=== PATIENT | female | born 1960 | race American Indian/Alaskan Native ===

== ENCOUNTER 2018-11-03 13:30 | Emergency (ER) | payer BC ==
[2018-11-03 13:40] VITALS: BP 158/90
--- NOTE | 2018-11-03 13:44 | Emergency Department Report ---
Blank Doc - Documentation Documentation: This is a 58-year-old female that presents with left elbow and shoulder pain s/p fall. Stated she slipped and fell. Denies any head injuries or back pain. This initial assessment diagnostic orders/clinical plan/treatment(s) is/are subject to change based on patient's health status, clinical progression and re- assessment by fellow clinical providers in the ED. Further treatment and workup at subsequent clinical providers discretion. Patient/guardians urged not to elope from ED s their condition may be serious if not clinically assessed and managed. Initial orders include: 1-Patient sent to [facility] for further evaluation and treatment 2- xray
--- NOTE | 2018-11-03 15:37 | XRay Report ---
LEFT ELBOW, 3 views: History: left elbow pain. A large anterior and posterior joint effusion is identified. The bony structures are grossly intact on x-ray. No displaced fracture is detected. No significant joint pathology. IMPRESSION: Large joint effusion but no obvious bony injury. This could indicate an occult fracture or osteochondral defect. Please correlate with the patient and consider further imaging with MRI or CT.
--- NOTE | 2018-11-03 15:39 | XRay Report ---
LEFT SHOULDER, 3 views: History: Left shoulder pain. Mild osteoarthritic changes are identified at the a.c. joint and glenohumeral joint. The distal left clavicle is slightly elevated with respect to the acromion which could represent ligamentous injury. There is no evidence for displaced fracture or malalignment. The soft tissues are unremarkable. IMPRESSION: Osteoarthritis. Question the a.c. ligament injury. No evidence for fracture.
[2018-11-03] MEDS ORDERED: DECADRON IM STA (18:24)
[2018-11-03] MEDS ORDERED: IBUPROFEN PO ONE (18:24)
--- NOTE | 2018-11-03 18:24 | Emergency Department Report ---
Upper Extremity - HPI Chief Complaint: Extremity Problem,Nontraumatic Stated Complaint: LT ARM PAIN Time Seen by Provider: 11/03/18 13:42 Upper Extremity: Left Shoulder (pain after injury), Left Arm (pain after injury), Left Elbow (pain and swelling after injury) Occurred When: Today (a current) Mechanism: Fall, Other ( patient reports that she hit her shoulder and left arm on a metal pole while at work) Symptoms: Yes Pain with Movement (left shoulder left arm and left elbow), Yes Limited Range of Movement (left upper extremity), Yes Weakness (left upper extremity), Yes Swelling (left elbow), No Deformity, No Numbness, No Bruising/Ecchymosis, No Laceration or Abrasion Other History: This is a 58-year-old female who is here for left arm pain after injuring herself at work. She says she hit her shoulder, left arm and elbow on a metal pole today. She reports pain 8 out of 10 and radiating from her shoulder down to her forearm. She denies any head injury. Denies any chest pain or shortness of breath. This happened 30 minutes prior to coming to the emergency room. Patient and has a history of arthritis to left knee but denies any other problems. No medication taken prior to coming to the emergency room. Pain is worse with movement and to touch but no arrests. ED Review of Systems ROS: Stated complaint: LT ARM PAIN Other details as noted in HPI Constitutional: denies: chills, fever ENT: denies: throat pain, congestion Respiratory: denies: cough, shortness of breath, wheezing Cardiovascular: denies: chest pain, palpitations, edema, syncope (I note this To smoke about 1 on a bar I just dislocated such as long growth A) Gastrointestinal: denies: abdominal pain, nausea, vomiting Musculoskeletal: joint swelling, arthralgia. denies: back pain, myalgia Skin: denies: rash (Biglow Grundman sister brought she) Neurological: weakness, paresthesias. denies: headache, numbness, confusion, abnormal gait, vertigo (Y deformity to his sister for) ED Past Medical Hx - Past Medical History Previous Medical History?: Yes (Y deformity to his sister for therapeutic here) - Surgical History Past Surgical History?: Yes Additional Surgical History: left knee surgery - Family History Family history: hypertension - Social History Smoking Status: Never Smoker Substance Use Type: None - Medications Home Medications: Home Medications Medication Instructions Recorded Confirmed Last Taken Type Acetaminophen/Codeine [Tylenol 1 tab PO Q6H PRN #14 tab 11/03/18 Unknown Rx /Codeine # 3 tab] Ibuprofen [Motrin] 800 mg PO Q8HR PRN #12 tablet 11/03/18 Unknown Rx Upper Extremity Exam - Exam General: Vital signs noted. No distress. Alert and acting appropriately. This is a 58-year-old female well-nourished well-developed in no acute distress. Head and Torso: No HEENT Abnormality, No Neck Tenderness, No Chest/Lungs Abnormality, No Abdominal Tenderness, No Back Tenderness Shoulder Exam: Yes Shoulder Tenderness (GHJ), Yes Normal Range of Motion in Shoulder (limited range of motion to left shoulder due to pain), Yes AC Joint Tenderness (tender to palpate.), No Clavicle Tenderness, No Shoulder Deformity Arm Exam: Yes Arm/Humerus Tenderness (tentative palpate with mild swelling to arm), No Arm Deformity Elbow: Yes Elbow Tenderness, Yes Elbow Deformity (swelling to left elbow), No Normal Range of Motion in Elbow (Limited range of motion to the left elbow) Forearm: Yes Pain with Pronation (left), Yes Pain with Supination (left), No Forearm Tenderness, No Forearm Deformity Wrist: Yes Normal ROM in Wrist, No Wrist Tenderness, No Wrist Deformity, No Snuffbox Tenderness, No Pain with Axial Thumb Compression Hand: Yes Normal ROM in Digit(s), No Hand Tenderness, No Hand Deformity, No Digit Tenderness, No Digit(s) Deformity, No Tendon Dysfunction CMS Exam: Yes Normal Distal Pulses (No cce. + 2 pulses in all extremities, no neurovascular compromise except patient has limited range of motion to shoulder joint on the left, swelling to arm and posterior shoulder and elbow swelling with pain and limited range of motion on the left.), Yes Normal Capillary Refill (less than 2 seconds), Yes Normal Distal Sensation ( patient with good color sensation movement and temperature extremities.), No Broken Skin ED Course Vital Signs 11/03/18 13:38 Temperature 97.5 F L Pulse Rate 72 Respiratory 16 Rate Blood Pressure 158/90 O2 Sat by Pulse 100 Oximetry - Reevaluation(s) Reevaluation #1: 11/03/18 19:09 Patient given Decadron 10 mg IM, Auberry 5/325 2 tablets and Motrin 800 mg when necessary emergency room. She was found to have abnormal x-ray of shoulder and elbow and I spoke with Dr. Alcala was orthopedic doctor electrician second and gave him reports on x-rays and he wants patient to be placed in shoulder immobilizer and follow up with him in his office in 1-2 days. Patient pain is better. Please see procedure note for details of splinted - Orthopedic Splinting/Casting Injury #1 Side: left Upper Extremity Injury Location: shoulder, upper arm, elbow Upper Extremity Immobilizer: sling/shoulder immobilize Additional Comments: Patient with good color, sensation temperature and movement to left upper extremity and 2+ and bounding pulses. No restriction in movement finger hands or wrists. ED Medical Decision Making - Radiology Data Radiology results: report reviewed X-ray of left shoulder and left shoulder dictated by radiologist and reports reviewed by myself. Please see details below all quite uvula Findings [address] [address] XRay Report Signed Patient: JESSICA KELLY MR#: [id number] : 1960 Acct:[id number] Age/Sex: 58 / F ADM Date: 11/03/18 Loc: ED Attending Dr: Ordering Physician: SMITA BELLO NP Date of Service: 11/03/18 Procedure(s): XR shoulder 2+V LT Accession Number(s): [id number] cc: SMITA BELLO NP Fluoro Time In Minutes: LEFT SHOULDER, 3 views: History: Left shoulder pain. Mild osteoarthritic changes are identified at the a.c. joint and glenohumeral joint. The distal left clavicle is slightly elevated with respect to the acromion which could represent ligamentous injury. There is no evidence for displaced fracture or malalignment. The soft tissues are unremarkable. IMPRESSION: Osteoarthritis. Question the a.c. ligament injury. No evidence for fracture. Transcribed By: TTR Dictated By: ARMANDO STERN JR, MD Electronically Authenticated By: ARMANDO STERN JR, MD Signed Date/Time: 11/03/18 1535 DD/ 1534 TD/TT: 11/03/18 [address] [address] XRay Report Signed Patient: JESSICA KELLY MR#: [id number] : 1960 Acct:[id number] Age/Sex: 58 / F ADM Date: 11/03/18 Loc: ED Attending Dr: Ordering Physician: SMITA BELLO NP Date of Service: 11/03/18 Procedure(s): XR elbow 3+V LT Accession Number(s): [id number] cc: SMITA BELLO NP Fluoro Time In Minutes: LEFT ELBOW, 3 views: History: left elbow pain. A large anterior and posterior joint effusion is identified. The bony structures are grossly intact on x-ray. No displaced fracture is detected. No significant joint pathology. Okay okay okay MRI or CT. Transcribed By: TTR Dictated By: ARMANDO STERN JR, MD Electronically Authenticated By: ARMANDO STERN JR, MD Signed Date/Time: 11/03/181533 DD/ 32 TD/TT: 11/03/181533 - Medical Decision Making This is a 58-year-old female who injured her left shoulder and arm and elbow today. She had x-ray of left shoulder and left elbow which was dictated by radiologist and report reviewed by myself. X-ray of left shoulder shows osteoarthritis questionable AC ligament injury and x-ray of left elbow shows large joint effusion but no bony abnormality. It also made reference to that this could be indicated if of an occult fracture ostia chondral defect. Radiologist is requesting correlation with MRI and CT scan. I spoke with Dr. Alcala's orthopedic on-call and he wants patient to follow-up in his office in 1-[address] patient in a shoulder immobilizer. I discussed the patient and her x-ray findings and diagnosis and radiologist recommendation also with orthopedic follow-up and she voiced understanding. She is with her family and she received Auberry, Motrin and Decadron emergency room which relieved her pain. Please refer to procedure note for shoulder immobilizer. Her vital signs are stable she is afebrile and discharged home with her family with prescription for Tylenol 3 and Motrin. - Differential Diagnosis fracture, dislocation, effusion, ligament injury MSK pain, sprain Critical care attestation.: If time is entered above; I have spent that time in minutes in the direct care of this critically ill patient, excluding procedure time. ED Disposition Clinical Impression: Rotator cuff arthropathy of left shoulder, Effusion of elbow joint, left, Arthralgia of multiple sites Osteoarthritis Qualifiers: Osteoarthritis location: shoulder Osteoarthritis type: post-traumatic Laterality: left Qualified Code(s): M19.112 - Post-traumatic osteoarthritis, left shoulder Acromioclavicular (joint) (ligament) sprain Qualifiers: Encounter type: initial encounter Laterality: left Qualified Code(s): S43.52XA - Sprain of left acromioclavicular joint, initial encounter Disposition: - TO HOME OR SELFCARE Is pt being admited?: No Does the pt Need Aspirin: No Condition: Stable Instructions: Osteoarthritis (ED), Arthralgia (ED), Rotator Cuff Injury (ED), Elbow Sprain (ED), Fall Prevention (ED) Additional Instructions: Please follow up with orthopedic doctor as discussed in 1-2 days for management of left upper extremity injury Take Tylenol 3 for severe pain and Motrin for mild to moderate pain. Please do not drive or operate heavy machinery while taking Tylenol No. 3 as this medication causes drowsiness See discharge instruction in a rice therapy Keep shoulder immobilizer on until he is seen by orthopedic doctor Referrals: KARLO SHELTON MD [Primary Care Provider] - 2-3 Days ROBINSON ALCALA MD [Staff Physician] - 11/04/18 [facility] [Provider Group] - 11/04/18 Forms: Accompanied Note, Work/School Release Form(ED)
[2018-11-03] MEDS ORDERED: NORCO 5/325 PO ONE (18:37)
== END 2018-11-03 19:34 | disposition home or self-care (01) ==
LOC: ED 13:30
DX: S43.52XA Sprain of left acromioclavicular joint, initial encounter (principal); M19.112 Post-traumatic osteoarthritis, left shoulder; M25.422 Effusion, left elbow; M25.50 Pain in unspecified joint; W20.8XXA Other cause of strike by thrown, projected or falling object, initial encounter; Y93.89 Activity, other specified; Y92.89 Other specified places as the place of occurrence of the external cause; Y99.8 Other external cause status
CPT/HCPCS: 29105; 73030; 73080; 96372; 99284; J1100